=== PATIENT | female | born 1960 | race Caucasian/White ===

== ENCOUNTER 2018-03-11 11:11 | Outpatient (CLI) | payer OTHER ==
--- NOTE | 2018-03-11 14:35 | MMO ---
BILATERAL DIGITAL SCREENING MAMMOGRAMS: Date: 03/11/18 This patient's mammogram was interpreted with the assistance of computer-aided detection. Baseline exam. FINDINGS: There are scattered fibroglandular densities. No suspicious masses, calcifications, or architectural distortion seen. IMPRESSION: BIRADS 1: Negative Return to annual mammographic screening. POS: [id number]
== END 2018-03-11 11:12 | disposition home or self-care (01) ==
LOC: SCSMAMMO 11:11
PROVIDERS: ATTEND Family Medicine
DX: Z12.31 Encounter for screening mammogram for malignant neoplasm of breast (principal)
CPT/HCPCS: 77067